=== PATIENT | female | born 1995 | race Caucasian/White ===

== ENCOUNTER → 2024-01-05 10:10 | Outpatient (REF) | payer BC, SELFPAY ==
[2024-01-05 11:27] LABS: % Basophils 0.6 % (0-2); % Eosinophils 5.4 % (0-6); % Immature Granulocytes 0.4 % (0-0.5); % Lymphocytes 27.9 % (20.5-51.1); % Monocytes 6.6 % (1.7-9.3); % Neutrophils 59.1 % (42.2-75.2); Absolute Basophils 0.1 10^3/uL (0-0.2); Absolute Eosinophils 0.4 10^3/uL (0-0.7); Absolute Lymphocytes 2.2 10^3/uL (1.2-3.4); Absolute Monocytes 0.5 10^3/uL (0.1-0.6); Absolute Neutrophils 4.6 10^3/uL (1.4-6.5); Hematocrit 35.5 % (37.0-47.0); Hemoglobin 11.6 g/dL (12.0-16.0); Mean Corp Hgb Conc. 32.7 g/dL (33.0-37.0); Mean Corpuscular Hgb 27.2 pg (27.0-31.0); Mean Corpuscular Volume 83.1 fL (81.0-99.0); Mean Platelet Volume 9.5 fL (7.4-10.4); Nucleated Red Blood Cells % 0 %; Platelet Count 284 10^3/uL (130-400); Red Blood Cell Count 4.27 10^6/uL (4.20-5.40); White Blood Cell Count 7.8 10^3/uL (4.8-10.8)
[2024-01-05 12:12] LABS: ALT (SGPT) 12 U/L (0-35); AST (SGOT) 20 U/L (14-36); Albumin 4.2 g/dl (3.5-5.0); Alkaline Phosphatase 83 U/L (38-126); Blood Urea Nitrogen 11 mg/dl (7-17); Calcium 10.1 mg/dl (8.4-10.2); Carbon Dioxide 27 mmol/L (22-30); Chloride 102 mmol/L (98-107); Glucose 90 mg/dl (70-99); HDL Cholesterol 81 mg/dl; LDL Cholesterol, Calculated 26 mg/dl; Potassium 4.5 mmol/L (3.5-5.1); Sodium 136 mmol/L (135-145); Total Bilirubin 0.4 mg/dl (0.2-1.3); Total Cholesterol 157 mg/dl (50-199); Total Protein 7.2 g/dl (6.3-8.2); Triglyceride 254 mg/dl (10-149); Very Low Density Lipoprotein 50 mg/dl (0-30); eGFR > 60.00
[2024-01-05 13:00] LABS: Hepatitis B Surface Antibody Positive
[2024-01-05 13:25] LABS: Glycohemoglobin (HgbA1c) 5.3 % (4.0-5.6)
[2024-01-05 14:08] LABS: TSH Reflex To Free T4 1.54 uIU/ml (0.47-4.68)
[2024-01-05 14:13] LABS: Ferritin 13.5 ng/ml (6.24-137)
[2024-01-05 14:44] LABS: Folate 16.1 ng/ml (2.76-20); Vitamin B12 > 1000 pg/ml (239-931)
[2024-01-08 04:08] LABS: Vitamin D 1,25 Dihydroxy 49.6 pg/mL (19.9-79.3)
== END ==
LOC: REG 10:10
PROVIDERS: ATTENDING PHYSICIAN Nurse Practitioner Family
DX: Z13.220 Encounter for screening for lipoid disorders (principal); Z13.29 Encounter for screening for other suspected endocrine disorder; Z13.1 Encounter for screening for diabetes mellitus; Z13.0 Encounter for screening for diseases of the blood and blood-forming organs and certain disorders involving the immune mechanism; Z13.21 Encounter for screening for nutritional disorder
CPT/HCPCS: 36415; 80053; 80061; 82607; 82652; 82728; 82746; 83036; 84443; 85025; 86706

== ENCOUNTER → 2024-03-18 18:13 | Outpatient (REF) | payer BC, SELFPAY | LOC: MRI 18:13 | PROVIDERS: ATTENDING PHYSICIAN Nurse Practitioner Family | DX: R11.0 Nausea (principal); R42 Dizziness and giddiness | CPT/HCPCS: 70553; A9575 ==